=== PATIENT | female | born 1980 | race Hispanic/Latino ===

== ENCOUNTER 2021-03-02 11:17 | Emergency (ER) | payer MEDICAID ==
[~2021-03-02] VITALS: Ht 149.9 cm; Wt 136.1 kg
[2021-03-02 12:00] LABS: BASOPHILS % (AUTO) 0.5 % (0.0-5.0); HEMATOCRIT 35.5 % (36-48); LYMPHOCYTES % (AUTO) 27.7 % (21.0-51.0); MEAN CORPUSCULAR HEMOGLOBIN 28.3 pg (27.0-33.0); MEAN CORPUSCULAR HGB CONC 34.1 g/dL (32.0-36.0); MEAN CORPUSCULAR VOLUME 82.9 fL (79-99); MONOCYTES % (AUTO) 7.2 % (3.0-13.0); NEUTROPHILS % (AUTO) 61.1 % (40.0-77.0); PLATELET COUNT (AUTO) 304 K/uL (130-400); RED BLOOD CELL COUNT(AUTO) 4.28 MIL/uL (4.00-5.50); RED CELL DISTRIBUTION WIDTH 13.2 % (11.0-15.5); WHITE BLOOD COUNT (AUTO) 7.8 K/uL (4.8-10.8)
[2021-03-02 12:16] LABS: ALBUMIN 3.2 g/dL (3.5-5.0); BILIRUBIN,TOTAL 0.5 mg/dL (0.2-1.0); CREATININE 0.8 mg/dL (0.5-1.5); POTASSIUM 3.8 mmol/L (3.5-5.1); TOTAL PROTEIN, SERUM 7.1 g/dL (6.0-8.3)
[2021-03-02] MEDS ORDERED: CEPHALEXIN 500 MG CAPSULE PO STA (13:06)
[2021-03-02] MEDS ORDERED: SULFAMETHOX-TMP DS 800/160 TAB PO STA (13:06)
[2021-03-02] MEDS ORDERED: CEPH500B PO (13:22)
[2021-03-02] MEDS ORDERED: SULF1TAB42 PO (13:22)
[2021-03-02] MEDS ORDERED: IBUP-2088 PO (13:22)
[2021-03-02] MEDS ORDERED: KETOROLAC 30MG VIAL (30MG/ML) IM ONE (13:30)
[2021-03-02 13:40] VITALS: BP 140/78
== END 2021-03-02 13:36 | disposition home or self-care (01) ==
LOC: EDH 11:17
DX: L03.011 Cellulitis of right finger (principal); E11.9 Type 2 diabetes mellitus without complications; E66.9 Obesity, unspecified; E78.00 Pure hypercholesterolemia, unspecified; I10 Essential (primary) hypertension; Z88.5 Allergy status to narcotic agent; Z88.8 Allergy status to other drugs, medicaments and biological substances; Z79.1 Long term (current) use of non-steroidal anti-inflammatories (NSAID); Z68.44 Body mass index [BMI] 60.0-69.9, adult
CPT/HCPCS: 36415; 73120; 80053; 85025; 96372; 99284; J1885

== ENCOUNTER 2021-03-29 12:44 | Emergency (ER) | payer MEDICAID ==
[~2021-03-29] VITALS: Ht 149.9 cm; Wt 145.1 kg
[~2021-03-29 12:44] MED LIST: CEPH500B PO; IBUP-2088 PO; SULF1TAB42 PO
[2021-03-29] MEDS ORDERED: DIPHENHYDRAMINE HCL 25 MG CAPSULE PO ONE (15:00)
[2021-03-29] MEDS ORDERED: FAMOTIDINE 20MG TAB PO ONE (15:00)
[2021-03-29] MEDS ORDERED: FAMO-136 PO (15:13)
[2021-03-29] MEDS ORDERED: CETI1SOL17 PO (15:13)
[2021-03-29 15:22] VITALS: BP 178/78
== END 2021-03-29 15:27 | disposition home or self-care (01) ==
LOC: EDH 12:44
DX: L50.9 Urticaria, unspecified (principal); E11.9 Type 2 diabetes mellitus without complications; I11.0 Hypertensive heart disease with heart failure; I50.9 Heart failure, unspecified; Z88.5 Allergy status to narcotic agent; Z91.041 Radiographic dye allergy status; Z79.1 Long term (current) use of non-steroidal anti-inflammatories (NSAID); Z86.73 Personal history of transient ischemic attack (TIA), and cerebral infarction without residual deficits
CPT/HCPCS: 99283; Q0163